=== PATIENT | female | born 1995 | race African-American/Black ===

== ENCOUNTER 2023-08-15 00:55 | Inpatient (IN) | payer OTHER ==
[2023-08-15] MEDS ORDERED: ELECTROLYTE-148 SOLN 1,000 ML IV SCH ×2 (02:00→09:00)
[2023-08-15 02:22] VITALS: BMI 25.6
[2023-08-15 02:49] LABS: BASO % 0.6 % (0-2.0); EOS % 0.6 % (0-4.5); HEMATOCRIT 34.2 % (32.4-45.2); HEMOGLOBIN 11.1 GM/dL (10.7-15.3); LYMPH % 29.6 % (8-40); MCH 28.6 pg (25.7-33.7); MCHC 32.4 g/dl (32.0-36.0); MEAN CELL VOLUME 88.1 fl (80-96); MONO % 8.4 % (3.8-10.2); NEUT % 60.8 % (42.8-82.8); PLATELET COUNT 272 10^3/uL (134-434); RBC 3.88 M/mm3 (3.60-5.2); RDW 13.4 % (11.6-15.6); WHITE BLOOD COUNT 6.6 K/mm3 (4.0-10.0)
[2023-08-15 02:56] LABS: INR 0.96 (0.83-1.09); PROTHROMBIN TIME (PATIENT) 11.1 SEC (9.7-13.0)
[2023-08-15 02:58] LABS: ACTIVATED PTT 25.7 SECONDS (25.2-36.5)
[2023-08-15 03:37] LABS: POTASSIUM 4.1 mmol/L (3.5-5.1)
[2023-08-15 03:38] LABS: CALCIUM 8.2 mg/dL (8.5-10.1)
[2023-08-15 03:39] LABS: BLOOD UREA NITROGEN 13.1 mg/dL (7-18)
[2023-08-15 03:42] LABS: CREATININE 0.7 mg/dL (0.55-1.3)
[2023-08-15 04:37] LABS: HIV INTERPRETATION NEGATIVE (NEGATIVE)
[2023-08-15] MEDS ORDERED: OXYTOCIN 30 UNITS in 0.9% NS 30 UNIT/500 ML INFUS.BAG IVPB SCH (09:00)
[2023-08-15] MEDS ORDERED: FENTANYL/BUPIVACAINE/NS/PF - PCEA - 50 ML DISP.SYRIN EP ONE (13:50)
[2023-08-15] MEDS ORDERED: BUPIVACAINE HCL/PF 0.25% (2.5MG/ML) 10 ML VIAL ONE (13:55)
[2023-08-15] MEDS ORDERED: FENTANYL CITRATE/PF 50 MCG/ML VIAL ONE (13:55)
[2023-08-15] MEDS ORDERED: LIDOCAINE HCL/EPINEPHRINE/PF 10 ML VIAL ONE ×2 (13:56→16:08)
[2023-08-15] MEDS: FENTANYL/BUPIVACAINE/NS/PF - PCEA - 50 ML DISP.SYRIN EP SCH (14:00)
[2023-08-15] MEDS ORDERED: NALOXONE HCL 0.4 MG/ML VIAL IVPUSH PRN (14:26)
[2023-08-15] MEDS ORDERED: KETOROLAC TROMETHAMINE 30 MG/1 ML VIAL ONE (16:06)
[2023-08-15] MEDS ORDERED: ceFAZolin SODIUM 1 GM VIAL ONE (16:06)
[2023-08-15] MEDS ORDERED: morphine SULFATE/PF 1 MG/2 ML (2cc Syringe - QUVA) ONE (16:06)
[2023-08-15] MEDS ORDERED: ONDANSETRON 4 MG/2 ML VIAL ONE (16:06)
[2023-08-15] MEDS ORDERED: DEXAMETHASONE SOD PHOSPHATE 4 MG/1 ML VIAL ONE (16:06)
[2023-08-15] MEDS ORDERED: OXYTOCIN 10 UNITS/ML VIAL ONE ×3 (16:18)
[2023-08-15] MEDS ORDERED: OXYTOCIN 20 UNITS in 0.9% NS 20 UNIT/1,000 ML INFUS.BAG IV ONE (17:06)
[2023-08-15] MEDS: OXYTOCIN 20 UNITS in 0.9% NS 20 UNIT/1,000 ML INFUS.BAG IV SCH (17:15)
[2023-08-15] MEDS ORDERED: CITRIC ACID/SODIUM CITRATE 30 ML UNIT-DOSE CUP PO ONE (17:47)
[2023-08-15] MEDS ORDERED: METHYLERGONOVINE MALEATE 0.2 MG/1 ML AMP IM PRN (17:48)
[2023-08-15] MEDS ORDERED: ACETAMINOPHEN 325 MG TABLET (FP) PO PRN (17:48)
[2023-08-15] MEDS ORDERED: IBUPROFEN 800 MG/8 ML IJ IVPB PRN (17:48)
[2023-08-15] MEDS ORDERED: ACETAMINOPHEN 1000 MG/100 ML BAG IVPB PRN (17:51)
[2023-08-15] MEDS ORDERED: ONDANSETRON 4 MG/2 ML VIAL IVPB PRN (20:02)
[2023-08-16] MEDS: OXYTOCIN 20 UNITS in 0.9% NS 20 UNIT/1,000 ML INFUS.BAG IV SCH (01:53)
[2023-08-16] MEDS ORDERED: oxyCODONE HCL 5 MG TABLET PO PRN (05:48)
[2023-08-16 08:06] LABS: HEMATOCRIT 32.3 % (32.4-45.2); HEMOGLOBIN 10.4 GM/dL (10.7-15.3); LYMPH % 10.9 % (8-40); MCH 28.4 pg (25.7-33.7); MCHC 32.1 g/dl (32.0-36.0); MEAN CELL VOLUME 88.2 fl (80-96); MEAN PLT VOLUME 9.6 fl (7.5-11.1); MONO % 7.9 % (3.8-10.2); NEUT % 81.2 % (42.8-82.8); PLATELET COUNT 236 10^3/uL (134-434); RBC 3.66 M/mm3 (3.60-5.2); WHITE BLOOD COUNT 14.2 K/mm3 (4.0-10.0)
[2023-08-16] MEDS: FERROUS SO4 325 MG TABLET (FP) PO SCH ×2 (09:09→21:38)
[2023-08-16] MEDS: PRENATAL VITAMINS W/ FOLIC ACID TABLET (FP) PO SCH (09:09)
[2023-08-16] MEDS: IBUPROFEN 600 MG TABLET (FP) PO PRN (15:48)
[2023-08-16] MEDS: SIMETHICONE 80 MG TAB.CHEW (FP) PO PRN ×2 (15:48→20:17)
[2023-08-16] MEDS: FENTANYL/BUPIVACAINE/NS/PF - PCEA - 50 ML DISP.SYRIN EP SCH (16:14)
[2023-08-16] MEDS ORDERED: BISACODYL 10 MG SUPP.RECT RC PRN (17:48)
[2023-08-16] MEDS: oxyCODONE HCL 5 MG TABLET PO PRN (20:18)
[2023-08-16] MEDS: SENNOSIDES/DOCUSATE COMBO (SENNA PLUS) TABLET (UD) PO PRN (21:38)
[2023-08-17] MEDS: IBUPROFEN 600 MG TABLET (FP) PO PRN ×2 (07:43→20:16)
[2023-08-17 07:56] LABS: POC NITRAZINE POS
[2023-08-17] MEDS: oxyCODONE HCL 5 MG TABLET PO PRN (10:03)
[2023-08-17] MEDS: FERROUS SO4 325 MG TABLET (FP) PO SCH ×2 (10:04→22:16)
[2023-08-17] MEDS: PRENATAL VITAMINS W/ FOLIC ACID TABLET (FP) PO SCH (10:04)
[2023-08-17] MEDS: SENNOSIDES/DOCUSATE COMBO (SENNA PLUS) TABLET (UD) PO PRN (20:16)
[2023-08-17] MEDS: SIMETHICONE 80 MG TAB.CHEW (FP) PO PRN (20:16)
[2023-08-17 20:18] VITALS: RESP 18; TEMP 98
[2023-08-18] MEDS: IBUPROFEN 600 MG TABLET (FP) PO PRN ×2 (01:23→09:11)
[2023-08-18] MEDS: SIMETHICONE 80 MG TAB.CHEW (FP) PO PRN (01:23)
[2023-08-18 08:37] VITALS: BP 124/71; PULSE 94
[2023-08-18] MEDS: FERROUS SO4 325 MG TABLET (FP) PO SCH (09:11)
[2023-08-18] MEDS: PRENATAL VITAMINS W/ FOLIC ACID TABLET (FP) PO SCH (09:11)
== END 2023-08-18 11:35 | disposition home or self-care (01) | DRG 788 ==
LOC: JLDR 00:55 → J3W 18:19
PROVIDERS: ADMIT Obstetrics & Gynecology; ATTEND Obstetrics & Gynecology
PROC: 10D00Z1 Extraction of Products of Conception, Low, Open Approach (ICD-10-PCS; principal; 2023-08-15)
DX: O76 Abnormality in fetal heart rate and rhythm complicating labor and delivery (principal); O69.81X0 Labor and delivery complicated by cord around neck, without compression, not applicable or unspecified; Z3A.39 39 weeks gestation of pregnancy; Z37.0 Single live birth
CPT/HCPCS: 36415; 80048; 83986-QW; 85025; 85610; 85730; 86780; 86850; 86900; 86901; 87389; 88307-TC